=== PATIENT | male | born 1995 | race Hispanic/Latino ===

== ENCOUNTER 2021-08-29 08:14 | Emergency (ER) | payer OTHER ==
[~2021-08-29] VITALS: Ht 182.9 cm; Wt 115.0 kg
[2021-08-29 08:15] VITALS: BP 157/92
== END 2021-08-29 09:50 | disposition home or self-care (01) ==
LOC: M ED 08:14
DX: U07.1 COVID-19 (principal); J45.909 Unspecified asthma, uncomplicated

== ENCOUNTER 2022-03-18 22:02 | Emergency (ER) | payer OTHER ==
[~2022-03-18] VITALS: Ht 195.6 cm; Wt 112.3 kg
[2022-03-18 22:02] VITALS: BP 141/82
== END 2022-03-19 01:14 | disposition left against medical advice (07) ==
LOC: M ED 22:02
DX: Z53.29 Procedure and treatment not carried out because of patient's decision for other reasons (principal)

== ENCOUNTER 2022-04-02 13:09 | Emergency (ER) | payer MEDICAID, OTHER, SELFPAY ==
[~2022-04-02] VITALS: Ht 193 cm; Wt 107.6 kg
[2022-04-02 13:09] VITALS: BP 157/86
== END 2022-04-02 15:08 | disposition home or self-care (01) ==
LOC: M ED 13:09
DX: S67.190A Crushing injury of right index finger, initial encounter (principal); W23.0XXA Caught, crushed, jammed, or pinched between moving objects, initial encounter; Y92.018 Other place in single-family (private) house as the place of occurrence of the external cause